=== PATIENT | male | born 1960 | race Caucasian/White ===

== ENCOUNTER 2022-12-25 07:41 | Day surgery (SDC) | payer MEDICAID ==
[~2022-12-25] VITALS: Ht 182.9 cm; Wt 89.4 kg
[2022-12-25] MEDS ORDERED: MOTRIN800 MG PO (07:54)
[2022-12-25] MEDS ORDERED: GABAPENTIN100 MG PO (07:55)
[2022-12-25] MEDS ORDERED: TAMSULOSIN HCL0.4 MG PO (07:55)
[2022-12-25] MEDS ORDERED: FLUOXETINE10 M2 PO (07:55)
[2022-12-25] MEDS ORDERED: CYCLOBENZAPRINE10 MG PO (07:55)
[2022-12-25] MEDS ORDERED: TRAZODONE50 MG PO (07:55)
[2022-12-25 10:21] VITALS: BP 164/91
== END 2022-12-25 09:55 | disposition home or self-care (01) ==
LOC: ORM 07:41
PROVIDERS: ATTEND Physical Medicine & Rehabilitation Pain Medicine
DX: M53.3 Sacrococcygeal disorders, not elsewhere classified (principal); M46.1 Sacroiliitis, not elsewhere classified; G89.4 Chronic pain syndrome; M79.2 Neuralgia and neuritis, unspecified
CPT/HCPCS: Q9967

== ENCOUNTER 2023-02-12 07:07 | Day surgery (SDC) | payer MEDICAID ==
[~2023-02-12] VITALS: Ht 182.9 cm; Wt 88.5 kg
[~2023-02-12 07:07] MED LIST: CYCLOBENZAPRINE10 MG PO; FLUOXETINE10 M2 PO; GABAPENTIN100 MG PO; MOTRIN800 MG PO; TAMSULOSIN HCL0.4 MG PO; TRAZODONE50 MG PO
[2023-02-12] MEDS ORDERED: TAMSULOSIN HCL0.4 MG PO (08:11)
[2023-02-12 12:05] VITALS: BP 153/91
== END 2023-02-12 10:20 | disposition home or self-care (01) | DRG 558 ==
LOC: PO 07:07 → ORM 07:15 → PO 10:20
PROVIDERS: ATTEND Physical Medicine & Rehabilitation
DX: M70.71 Other bursitis of hip, right hip (principal); G89.4 Chronic pain syndrome; M54.16 Radiculopathy, lumbar region; M48.062 Spinal stenosis, lumbar region with neurogenic claudication
CPT/HCPCS: Q9967